=== PATIENT | male | born 1965 | race Asian ===

== ENCOUNTER 2021-03-01 08:09 | Emergency (ER) | payer OTHER, SELFPAY ==
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
[2021-03-01 08:16] VITALS: BP 152/60; BP 170/80; PULSE 68; PULSE 82; RESP 16; TEMP 36.6; O2SAT 98; O2SAT 99; BMI 29.4
[2021-03-01 08:25] VITALS: PULSE 68; RESP 16; O2SAT 99
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
== END 2021-03-01 09:36 | disposition home or self-care (01) ==
PROVIDERS: Emergency Provider Emergency Medicine; PCP Family Medicine
DX: S20.211A Contusion of right front wall of thorax, initial encounter (principal); R07.81 Pleurodynia; E11.9 Type 2 diabetes mellitus without complications; V53.5XXA Driver of pick-up truck or van injured in collision with car, pick-up truck or van in traffic accident, initial encounter; Y93.9 Activity, unspecified; Y92.410 Unspecified street and highway as the place of occurrence of the external cause; Y99.9 Unspecified external cause status; Z79.899 Other long term (current) drug therapy
CPT/HCPCS: 71101; 99283; 99284